=== PATIENT | female | born 1965 | race Caucasian/White ===

== ENCOUNTER 2019-01-17 06:01 | Day surgery (SDC) | payer OTHER ==
--- NOTE | 2017-12-31 06:21 | PREOPHP ---
DATE OF ADMISSION: 01/02/2018 HISTORY OF PRESENT ILLNESS: This is a 52-year-old female, 0, para 0. The patient had been referred to me due to perimenopausal bleeding, endometrial hyperplasia, large uterus, and fibroid ut erus. She has seen me with a history of abnormal uterine bleeding. She is still not in menopause. Her hormones are still within normal limits, but she is in perimenopausal state. The patient has b een bleeding and that puts her anemic and her ultrasound revealed a 12.6 cm uterus with a 2 cm endom etrial thickness and that could be a polyp, a fibroid or an endometrial malignancy. The patient has been advised for a fractional D and C and possible ablation if malignancy is not involved. We will do a frozen section. PAST MEDICAL HISTORY: Arthroscopy. ALLERGIES: SHE IS NOT ALLERGIC TO ANY MEDICATIONS. SHE IS ALLERGIC TO CASHEWS. MEDICATIONS: None. FAMILY HISTORY: Hypertension and diabetes. PHYSICAL EXAMINATION: VITAL SIGNS: Patient is morbidly obese. Her blood pressure was unmeasurable in the office due to h er weight. We did not have the right cuff. Her pulse is 80. She is afebrile. HEAD AND NECK: Normal. CHEST: Clear. HEART: Normal sinus rhythm. LUNGS: Clear. ABDOMEN: Soft, tenderness. It was a very difficult evaluation due to her obesity. I was unable to feel for the uterus or adnexa. EXTREMITIES: Normal. ASSESSMENT AND PLAN: Perimenopausal bleeding, endometrial hyperplasia, large fibroid uterus by ultr asound. Perimenopausal bleeding. She is advised for a fractional D and C, hysteroscopy. Also has a diagnosis of morbid obesity ad rule out malignancy. She will be having an ____ if the procedure th at shows that there was no malignancy involved. She has been advised of the possible risks and poss ible complications of the procedure with her alternatives and options. Written information was prov ided. She had no more questions and agreed to go ahead with the procedure with full understanding a nd no more questions. Dictated By: TERRANCE MINOR/NTS Conf#: [id number] DID#: [id number]
--- NOTE | 2019-01-13 10:35 | PREOPHP ---
DATE OF ADMISSION: 12/18/2018 HISTORY OF PRESENT ILLNESS: 1. This is a 53-year-old female, 0, para 0. The patient has been offered a D and C hysteros copy due to endometrial hyperplasia with perimenopausal syndrome. 2. Bleeding with a history of morbid obesity. 3. Hypertension and diabetes that gives her a higher risk for endometrial malignancy. The patient h as been evaluated for endometrial hyperplasia that she had an endometrial biopsy for that did not killian w anything. The patient has been also anemic and an ultrasound revealed that the uterus had a fibroi d and a 2 cm endometrial thickness that could be a fibroid or polyp. For this reason, she was given advised for a D and C hysteroscopy for further workup. PAST MEDICAL HISTORY: Arthroscopy. ALLERGIES: She is not allergic to any medications. SHE IS ALLERGIC TO CASHEWS. MEDICATIONS: She is on: 1. Amlodipine. 2. Lisinopril. 3. Acyclovir. 4. Citalopram. 5. Chlorthalidone. 6. Vitamin C. FAMILY HISTORY: Hypertension, diabetes. PHYSICAL EXAMINATION: VITAL SIGNS: Stable. The patient is morbidly obese. Blood pressure is not measurable in the office . Pulse is 80, she is afebrile. HEAD AND NECK: Normal. CHEST: Clear. HEART: Normal sinus rhythm. LUNGS: Clear. ABDOMEN: Soft, nontender, no masses. Difficult evaluation due to her abdominal obesity. EXTREMITIES: Normal. The patient weighs 441 pounds and she is only 5 feet 2. PELVIC: Also extremely difficult for evaluation due to her obesity. EXTREMITIES: Normal. DIAGNOSES: 1. Perimenopausal syndrome. 2. Intractable bleeding with anemia. 3. Hypertension. 4. Morbid obesity. 5. Diabetes. PLAN: She is undergoing a fractional D and C hysteroscopy. The patient was given a Depo-Provera inj ection to stop her bleeding and she will also be looking for bariatric surgery information. She has been advised of the possible risks and possible complications of the procedure with her alternatives and options. Written information was provided. She had no more questions and agreed to go ahead wit h the procedure with full understanding and no more questions. Dictated By: TERRANCE MINOR/TESS Conf#: [id number] DID#: [id number]
[2019-01-16 11:40] VITALS: Ht 157.5 cm; Wt 191.3 kg
[~2019-01-17] VITALS: Ht 157.5 cm; Wt 191.3 kg
[2019-01-17] MEDS ORDERED: METF500T24 PO (06:44)
[2019-01-17] MEDS ORDERED: CITA40TA6 PO (06:44)
[2019-01-17] MEDS ORDERED: ACYC400T2 PO (06:44)
[2019-01-17] MEDS ORDERED: CHLO25TA2 PO (06:44)
[2019-01-17] MEDS ORDERED: AMLO-147 PO (06:44)
[2019-01-17] MEDS ORDERED: LISI40TA3 PO (06:44)
[2019-01-17] MEDS ORDERED: CEFAZOLIN 2 GM/50 ML (PMX) 50 ML IVPB ONE (07:00)
[2019-01-17 07:14] VITALS: BP 117/62; PULSE 82; RESP 18
--- NOTE | 2019-01-17 09:28 | PD.PPDC ---
[employer] HELPER Discharge Instruction Provider Information Physician Information Procedure was canceled by anesthesia due to inability to intubate due to her morbid obesity and also inability to do a spinal anesthesia due to to inability to intubate in case of need. Local anesthesia was not an option either in case that I can encounter bleeding and they are unable to intubate her. Patient will be referred to [facility] where they do bariatric surgery for further follow-up and treatment Condition [id number] Patient Condition: Ofoxb2c Good Diet [id number] Diet: [id number] Resume Regular Diet Activity/Restrictions [id number] Activity: Tntls3d Normal Activity May Shower [id number] Restrictions: Clpym9s Nothing in the Vagina No [place] No Tampshwetha gross VERONICA MD Jan 17, 2019 09:28
--- NOTE | 2019-01-17 15:11 | RADRPT ---
Vent Rate: 80 bpm RR Interval: 0 msec LA Interval: 162 msec QRS Duration: 90 msec QT Interval: 384 msec QTC Interval: 442 msec P-R-T Felda: 36 - 14 - 37 degrees Normal sinus rhythm Normal ECG Electronically Signed By: Pablo Gonzalez
== END 2019-01-17 09:40 | disposition home or self-care (01) ==
LOC: SDS 06:01
PROVIDERS: ATTEND Obstetrics & Gynecology
DX: N92.4 Excessive bleeding in the premenopausal period (principal); Z53.8 Procedure and treatment not carried out for other reasons; I10 Essential (primary) hypertension; E11.9 Type 2 diabetes mellitus without complications; E66.01 Morbid (severe) obesity due to excess calories; Z68.45 Body mass index [BMI] 70 or greater, adult
CPT/HCPCS: 82962; 93005